=== PATIENT | female | born 1970 | race Caucasian/White ===

== ENCOUNTER → 2018-09-15 | Outpatient (CLI) | payer OTHER | END | disposition home or self-care (01) | LOC: CFH 10:34 | PROVIDERS: ATTEND Family Medicine | DX: Z12.31 Encounter for screening mammogram for malignant neoplasm of breast (principal); Z80.3 Family history of malignant neoplasm of breast | CPT/HCPCS: 76377; 76642; 77063; 77067 ==

== ENCOUNTER → 2020-07-21 | Outpatient (CLI) | payer OTHER ==
[~2020-07-21] MED LIST: IBUP200T64 PO; MONT10TA11 PO; SERT50TA28 PO
== END | disposition home or self-care (01) ==
LOC: STAR 10:16
PROVIDERS: ATTEND Anesthesiology
DX: Z01.812 Encounter for preprocedural laboratory examination (principal); Z20.828 Contact with and (suspected) exposure to other viral communicable diseases
CPT/HCPCS: 36415; 87635

== ENCOUNTER 2020-07-25 12:30 | Day surgery (SDC) | payer OTHER ==
[~2020-07-25] VITALS: Ht 172.7 cm; Wt 83.5 kg
[2020-07-25] MEDS ORDERED: FENTANYL PF 250 MCG/5ML ONE (12:34)
[2020-07-25] MEDS ORDERED: MIDAZOLAM 1 MG/ML, 2ML ONE (12:34)
[2020-07-25] MEDS ORDERED: LACTATED RINGERS 1,000 ML IV SCH (12:56)
[2020-07-25] MEDS ORDERED: IBUP200T64 PO (12:59)
[2020-07-25] MEDS ORDERED: MONT10TA11 PO (12:59)
[2020-07-25] MEDS ORDERED: SERT50TA28 PO (12:59)
[2020-07-25] MEDS ORDERED: CHLORHEXIDINE 15 ML UDC MM ONE (13:00)
[2020-07-25 13:05] VITALS: BP 120/80
[2020-07-25 13:08] LABS: HCG UR SG 1.022 (1.003-1.030)
[2020-07-25] MEDS ORDERED: ACETAMINOPHEN 500 MG TABLET ONE (13:26)
[2020-07-25] MEDS ORDERED: SCOPOLAMINE 1MG PATCH TD ONE (13:26)
[2020-07-25] MEDS ORDERED: ROPIvacaine/PF 0.5%, 30 ML ONE (13:29)
[2020-07-25] MEDS ORDERED: EPINEPHRINE 1 MG/ML, 1ML ONE ×3 (13:29→14:42)
[2020-07-25] MEDS ORDERED: ACETAMINOPHEN 500 MG TABLET PO ONE (13:30)
[2020-07-25] MEDS ORDERED: SCOPOLAMINE 1MG PATCH TD SCH (13:30)
[2020-07-25] MEDS ORDERED: ONDANSETRON 2MG/ML, 2ML ONE (13:43)
[2020-07-25] MEDS ORDERED: CEFAZOLIN 1,000 MG ONE (13:43)
[2020-07-25] MEDS ORDERED: NEOSTIGMINE 1 MG/ML, 10ML ONE (13:43)
[2020-07-25] MEDS ORDERED: PROPOFOL 10 MG/ML, 20ML ONE (13:43)
[2020-07-25] MEDS ORDERED: GLYCOPYRROLATE 0.2MG/1ML, 5ML ONE (13:43)
[2020-07-25] MEDS ORDERED: ROCURONIUM 10 MG/ML,10ML ONE (13:43)
[2020-07-25] MEDS ORDERED: PROMETHAZINE 25 MG/ML, 1ML IVPush PRN (14:30)
[2020-07-25] MEDS ORDERED: HYDROmorphone 1 MG/ML, 1ML INJ IVPush PRN (14:30)
[2020-07-25] MEDS ORDERED: DIPHENHYDRAMINE 50 MG/ML, 1ML IVPush PRN (14:30)
[2020-07-25] MEDS ORDERED: MEPERIDINE/PF 25MG/0.5ML IVPush PRN (14:30)
[2020-07-25] MEDS ORDERED: HALOPERIDOL 5 MG/ML IV PRN (14:30)
[2020-07-25] MEDS ORDERED: hydrALAzine 20 MG/ML, 1ML IV PRN (14:30)
[2020-07-25] MEDS ORDERED: ONDANSETRON 2MG/ML, 2ML IVPush PRN (14:30)
[2020-07-25] MEDS ORDERED: DIAZEPAM 5 MG/ML, 2ML IVPush PRN (14:30)
[2020-07-25] MEDS ORDERED: LABETALOL 5MG/ML, 20ML IV PRN (14:30)
[2020-07-25] MEDS ORDERED: OXYcodone 5 MG/5 ML ORAL.SOL UDC PO PRN (14:30)
[2020-07-25] MEDS: FENTANYL PF 100 MCG/2ML IV PRN ×2 (15:39→15:48)
[2020-07-25] MEDS ORDERED: FENTANYL PF 100 MCG/2ML ONE (15:40)
[2020-07-25] MEDS ORDERED: PROMETHAZINE 25 MG/ML, 1ML ONE (15:40)
[2020-07-25] MEDS ORDERED: KETOROLAC 30 MG/1 ML ONE (16:02)
[2020-07-25] MEDS ORDERED: HYDROcodone/APAP 7.5-325MG/15ML UDC ONE (16:14)
[2020-07-25] MEDS ORDERED: MORPHINE SULFATE 4 MG/ML, 1ML IVPush PRN (16:30)
[2020-07-25] MEDS ORDERED: KETOROLAC 30 MG/1 ML IVPush PRN (16:30)
[2020-07-25] MEDS ORDERED: HYDROcodone/APAP 7.5-325MG/15ML UDC PO PRN (16:30)
== END 2020-07-25 18:15 | disposition home or self-care (01) ==
LOC: OUT 12:30
PROVIDERS: ATTEND Orthopaedic Surgery
DX: S73.191A Other sprain of right hip, initial encounter (principal); M25.851 Other specified joint disorders, right hip; M65.861 Other synovitis and tenosynovitis, right lower leg; M16.11 Unilateral primary osteoarthritis, right hip; M24.151 Other articular cartilage disorders, right hip; M94.251 Chondromalacia, right hip; Z79.891 Long term (current) use of opiate analgesic; Z79.899 Other long term (current) drug therapy; Z88.5 Allergy status to narcotic agent; Z98.51 Tubal ligation status; Z98.890 Other specified postprocedural states; Z82.49 Family history of ischemic heart disease and other diseases of the circulatory system; X58.XXXA Exposure to other specified factors, initial encounter; Y93.89 Activity, other specified; Y92.89 Other specified places as the place of occurrence of the external cause; Y99.8 Other external cause status
CPT/HCPCS: 29914; 29916; 73501; 81025; C1713; J0171; J0690; J1885; J2250; J2405; J2550; J2704; J2710; J2795; J3010; J7120; 76000